=== PATIENT | female | born 1980 | race Caucasian/White ===

== ENCOUNTER 2017-01-22 12:04 | Emergency (ER) | payer OTHER | END 2017-01-22 13:58 | disposition home or self-care (01) | LOC: ER1 12:04 | DX: S39.012A Strain of muscle, fascia and tendon of lower back, initial encounter (principal); V49.50XA Passenger injured in collision with unspecified motor vehicles in traffic accident, initial encounter; Y92.410 Unspecified street and highway as the place of occurrence of the external cause | CPT/HCPCS: 72100; 99284 ==